=== PATIENT | female | born 1960 | race Caucasian/White ===

== ENCOUNTER → 2017-01-31 | Outpatient (CLI) | payer MEDICARE, OTHER | LOC: EXRD 13:19 | DX: M25.50 Pain in unspecified joint (principal); M25.561 Pain in right knee; M25.579 Pain in unspecified ankle and joints of unspecified foot; W19.XXXA Unspecified fall, initial encounter | CPT/HCPCS: 73502; 73560; 73610 ==

== ENCOUNTER → 2020-12-22 | Outpatient (CLI) | payer MEDICARE, OTHER ==
[~2020-12-22] MED LIST: AMARYL 2MG TABLE2 MG PO; BREO ELLIPTA 21 EACH INH; CALCIUM 600 +1 EAC7 PO; CATAPRES 0.1MG0.1 MG PO; CYCLOBENZAPRINE5 MG PO; CYMBALTA60 MG PO; DICLOFONO2.5 GM TP; DIFLUCAN 100 M100 MG TOP; DIFLUCAN200 MG PO; EPIPEN 2-P0.3 MG/0.3 INJ; FLEXERIL 10 MG10 MG PO; FOLIC ACID 1 MG1 MG PO; FORTEO 250250 MCG/ML SC; HYDROCODON-ACE1 EAC2 PO; IBUPROFEN800 MG PO; IPRAT-ALBUT 0.5-3 ML INH; KEFLEX CAP 500500 MG PO; KETOTIFEN FUMARATE; KEVZARA200 MG/1.2 SQ; LAC-HYDRIN FIV226 GM TP; LEVOCETIRIZINE D5 MG PO; LEXAPRO20 MG PO; LOVENOX SY40 MG/0.4 SQ; MICROZIDE12.5 MG PO; MIRALAX17 GM PO; MYCOSTATIN100000 UTS PO; NORCO 7.5-3251 EACH PO; OZEMPIC0.25 MG/0. SQ; PERCOCET 5/325 T1 EA PO; PHENERGAN 25 MG25 M1 PO; PRAVACHOL80 MG PO; PREDNISONE5 MG PO; PRINIVIL10 MG PO; PROTONIX40 MG PO; SINGULAIR10 MG PO; TREXALL10 MG PO; TYLENOL 500 MG500 MG PO; ULTRAM50 MG PO; VENTOLIN HFA 66.7 GM INH; VITAMIN B-121000 MCG PO; VITAMIN D250000 UNIT PO; ZANTAC300 MG PO; ZOFRAN4 MG PO; ZYLOPRIM 100 M100 MG PO
== END ==
LOC: KOH-I 11:02
DX: F17.210 Nicotine dependence, cigarettes, uncomplicated (principal); R91.1 Solitary pulmonary nodule; R59.0 Localized enlarged lymph nodes
CPT/HCPCS: 71271

== ENCOUNTER → 2021-07-26 | Outpatient (CLI) | payer MEDICARE, OTHER | LOC: KOH-I 07-19 13:00 | DX: R29.2 Abnormal reflex (principal); M47.22 Other spondylosis with radiculopathy, cervical region; M25.78 Osteophyte, vertebrae; M48.02 Spinal stenosis, cervical region; M50.11 Cervical disc disorder with radiculopathy, high cervical region | CPT/HCPCS: 72141 ==

== ENCOUNTER → 2021-11-09 | Outpatient (CLI) | payer MEDICARE, OTHER | LOC: EXRD 14:52 | DX: U07.1 COVID-19 (principal); M54.9 Dorsalgia, unspecified; I51.7 Cardiomegaly | CPT/HCPCS: 71046 ==

== ENCOUNTER → 2022-02-01 | Outpatient (CLI) | payer MEDICARE, OTHER ==
[2022-02-01 17:36] LABS: HEMOGLOBIN 14.9 gm/dl (12.3-15.3); RED BLOOD COUNT 4.99 M/UL (4.00-5.10); WHITE BLOOD COUNT 19.3 K/UL (4.5-11.0)
[2022-02-01 17:58] LABS: BUN/CREATININE RATIO 23 (0-10)
[2022-02-03 12:12] LABS: ANTISTREPTOLYSIN O AB 88.9 IU/mL (0.0-200.0)
[2022-02-03 14:13] LABS: RHEUMATOID ARTHRITIS FACTOR >650.0 IU/mL (<14.0)
== END ==
LOC: LAB 16:59
PROVIDERS: Nurse Practitioner Family
DX: L03.90 Cellulitis, unspecified (principal); M25.521 Pain in right elbow; M54.9 Dorsalgia, unspecified; R30.0 Dysuria; R53.83 Other fatigue; N39.0 Urinary tract infection, site not specified; K21.9 Gastro-esophageal reflux disease without esophagitis; R93.7 Abnormal findings on diagnostic imaging of other parts of musculoskeletal system; M19.021 Primary osteoarthritis, right elbow; M79.89 Other specified soft tissue disorders
CPT/HCPCS: 36415; 73080; 80053; 83605; 84550; 85025; 85652; 86038; 86060; 86140; 86141; 86431; 87086

== ENCOUNTER → 2022-03-29 | Outpatient (CLI) | payer MEDICARE, OTHER | LOC: KOH-I 03-10 14:30 | DX: M62.81 Muscle weakness (generalized) (principal); M19.031 Primary osteoarthritis, right wrist; R93.6 Abnormal findings on diagnostic imaging of limbs | CPT/HCPCS: 73221 ==